=== PATIENT | male | born 1950 | race African-American/Black ===

== ENCOUNTER 2020-01-17 16:08 | Emergency (ER) | payer MEDICARE, OTHER ==
[~2020-01-17] VITALS: Ht 180.3 cm; Wt 82.7 kg
[2020-01-17 16:23] VITALS: Ht 180.3 cm; Wt 82.7 kg
[2020-01-17] MEDS ORDERED: NORVASC10 MG PO (16:26)
[2020-01-17 17:11] LABS: BILIRUBIN NEGATIVE (NEGATIVE); GLUCOSE NEGATIVE (NEGATIVE); KETONE SMALL mg/dL (NEGATIVE); NITRITE NEGATIVE (NEGATIVE); UROBILINOGEN NORMAL (NORMAL)
[2020-01-17 17:12] LABS: UDS - AMPHET NEGATIVE QUAL (NEGATIVE); UDS - BARB NEGATIVE QUAL (NEGATIVE); UDS - BENZO NEGATIVE QUAL (NEGATIVE); UDS - COCAINE NEGATIVE QUAL (NEGATIVE); UDS - OPIATE NEGATIVE QUAL (NEGATIVE); UDS - PCP NEGATIVE QUAL (NEGATIVE); UDS - THC POSITIVE QUAL (NEGATIVE)
[2020-01-17 17:13] LABS: BASOPHILS 0.1 % (0-2); EOSINOPHILS 0.9 % (0-7); HEMOGLOBIN 13.3 g/dL (13.5-17.5); IMMATURE GRANULOCYTES 0.3 % (0-5); LYMPHOCYTES 14.7 % (15-50); MCH 31.5 pg (26.0-34.0); MCHC 33.3 g/dL (31.0-37.0); MCV 94.8 fL (80.0-100.0); MEAN PLATELET VOLUME 9.4 fL (7.4-10.4); MONOCYTES 8.3 % (2-11); NEUTROPHILS 75.7 % (40-80); PLATELET COUNT 327 10x3/uL (130-400); RBC 4.22 10x6/uL (4.20-6.10); RDW 14.6 % (11.5-14.5)
[2020-01-17 17:25] LABS: ANION GAP 10.9 mmol/L (8-16); CALCIUM 9.9 mg/dL (8.5-10.1); CARBON DIOXIDE 28.3 mmol/L (21.0-32.0); CREATININE - SERUM 1.3 mg/dL (0.6-1.3); POTASSIUM - SERUM 4.2 mmol/L (3.5-5.1)
[2020-01-17 17:31] LABS: BILIRUBIN - TOTAL 0.4 mg/dL (0.2-1.3); MAGNESIUM - SERUM 1.6 mg/dL (1.8-2.4); PROTEIN - SERUM 8.7 g/dL (6.4-8.2)
--- NOTE | 2020-01-17 17:35 | NUR ---
DR. FREEMAN NOTIFIED AND SITTER ORDERED. SITTER IN LINE OF SIGHT. NOTIFIED CHARGE NURSE AND ATTENDING IN REGARDS TO ASSESSMENT FINDINGS. RESOURCES GIVEN TO PT AND SAFETY PLAN INTIATED.
[2020-01-18 01:33] VITALS: BP 133/81
== END 2020-01-18 01:33 | disposition other institution (70) ==
LOC: D.ER 16:08
PROVIDERS: Family Medicine
DX: F32.9 Major depressive disorder, single episode, unspecified (principal); R45.851 Suicidal ideations; I10 Essential (primary) hypertension